=== PATIENT | female | born 2000 | race Two or more races ===

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

== ENCOUNTER 2023-09-16 08:49 | Emergency (ER) | payer OTHER ==
[~2023-09-16] VITALS: Ht 149.9 cm; Wt 52.6 kg
[2023-09-16] MEDS ORDERED: FOLIC ACID20 MG (09:15)
[2023-09-16] MEDS ORDERED: RINGERS SOLUTION,LACTATED 1,000 ML IV STA (10:17)
[2023-09-16] MEDS ORDERED: ONDANSETRON HCL 2 MG/ML VIAL IV ONE (10:30)
[2023-09-16 10:45] LABS: HEMATOCRIT 35.6 % (36.0-45.00); HEMOGLOBIN 12.5 g/dL (12.0-15.00); MEAN CELL VOLUME 86.4 fL (80.00-100.00); MEAN CORPUSCULAR HEMOGLOBIN 30.4 pg (27.00-32.0); MEAN CORPUSCULAR HGB CONC 35.2 g/dl (32.0-36.0); PLATELET COUNT 217 K/uL (150-450); RED BLOOD COUNT 4.12 M/uL (4.00-6.00); RED CELL DISTRIBUTION WIDTH 12.8 % (11.5-14.5)
[2023-09-16 11:38] LABS: CALCIUM 9.9 mg/dL (8.5-10.1); CREATININE SERUM 0.58 mg/dL (0.55-1.02); GFR 126.67; POTASSIUM 3.66 mEq/L (3.5-5.1)
[2023-09-16 12:25] LABS: PH,URINE 6.5 (5.0-8.0); URINE APPEARANCE Cloudy; URINE BILIRRUBIN Negative (NEGATIVE); URINE BLOOD Negative; URINE COLOR Yellow; URINE GLUCOSE Negative (NEGATIVE); URINE LEUKOCYTE Negative; URINE NITRATE Negative; URINE PROTEIN Negative (NEGATIVE)
[2023-09-16 12:28] LABS: URINE BACTERIA 1069.7 uL (0.0-1933); URINE EPITHELIAL CELLS 69.8 uL (0.0-38.8); URINE RBC 6.3 uL (0.0-20.8); URINE WBC 28.4 uL (0.0-23.2)
[2023-09-16 12:57] LABS: URINE MUCUS MODERATE
== END 2023-09-16 16:53 | disposition home or self-care (01) ==
LOC: ER 08:49
PROVIDERS: General Practice
DX: O21.8 Other vomiting complicating pregnancy (principal); Z3A.01 Less than 8 weeks gestation of pregnancy

== ENCOUNTER 2023-09-20 16:49 | Emergency (ER) | payer OTHER ==
[~2023-09-20] VITALS: Ht 121.9 cm; Wt 52.6 kg
[~2023-09-20 16:49] MED LIST changes: +FOLIC ACID20 MG
[2023-09-20] MEDS ORDERED: ZOFRAN8 MG (16:58)
[2023-09-20] MEDS ORDERED: GUAIFENESIN/DEXTROMETHORPHAN 100 MG/5 ML ML PO ONE (18:30)
[2023-09-20 19:24] LABS: HEMATOCRIT 33.5 % (36.0-45.00); HEMOGLOBIN 11.6 g/dL (12.0-15.00); MEAN CELL VOLUME 84.5 fL (80.00-100.00); MEAN CORPUSCULAR HEMOGLOBIN 29.3 pg (27.00-32.0); MEAN CORPUSCULAR HGB CONC 34.6 g/dl (32.0-36.0); PLATELET COUNT 173 K/uL (150-450); RED BLOOD COUNT 3.97 M/uL (4.00-6.00); RED CELL DISTRIBUTION WIDTH 13.1 % (11.5-14.5)
[2023-09-20] MEDS ORDERED: OSELTAMIVIR PHOSPHATE 75 MG CAPSULE PO ONE (21:15)
== END 2023-09-20 21:26 | disposition home or self-care (01) ==
LOC: ER 16:49
PROVIDERS: Emergency Medicine
DX: Z34.90 Encounter for supervision of normal pregnancy, unspecified, unspecified trimester (principal); J10.1 Influenza due to other identified influenza virus with other respiratory manifestations; R53.81 Other malaise; Z20.822 Contact with and (suspected) exposure to COVID-19

== ENCOUNTER 2024-04-19 18:28 | Inpatient (IN) | payer OTHER ==
[~2024-04-19] VITALS: Ht 149.9 cm; Wt 62.1 kg
[~2024-04-19 18:28] MED LIST changes: +CHILDREN'S ASPI81 MG; +PRENATAL + DHA1 EAC1; +ZOFRAN8 MG
[2024-04-19 18:54] VITALS: BP 130/77
[2024-04-19 19:55] LABS: PH,URINE 6.5 (5.0-8.0); URINE APPEARANCE Clear; URINE BILIRRUBIN Negative (NEGATIVE); URINE BLOOD Negative; URINE COLOR Yellow; URINE GLUCOSE Negative (NEGATIVE); URINE LEUKOCYTE Negative; URINE NITRATE Negative; URINE PROTEIN Negative (NEGATIVE)
[2024-04-19 19:59] LABS: URINE BACTERIA 1152.8 uL (0.0-1933); URINE EPITHELIAL CELLS 59.9 uL (0.0-38.8); URINE WBC 25.6 uL (0.0-23.2)
[2024-04-19 20:01] LABS: HEMATOCRIT 29.4 % (36.0-45.00); HEMOGLOBIN 10.4 g/dL (12.0-15.00); MEAN CELL VOLUME 86.6 fL (80.00-100.00); MEAN CORPUSCULAR HEMOGLOBIN 30.5 pg (27.00-32.0); MEAN CORPUSCULAR HGB CONC 35.2 g/dl (32.0-36.0); PLATELET COUNT 214 K/uL (150-450); RED CELL DISTRIBUTION WIDTH 13.4 % (11.5-14.5)
[2024-04-19 20:22] LABS: URINE CAST 0.15 uL (0.0-1.40); URINE CRYSTALS FEW /HPF; URINE KETONE 80 (NEGATIVE); URINE MUCUS SCANT; URINE RBC 1.2 uL (0.0-20.8)
[2024-04-19 20:28] LABS: INR 0.95; PARTIAL THROMBOPLASTIN TIME 27.3 SECONDS (22.0-34.0); PROTHROMBIN TIME 10.4 SECONDS (9.0-11.5)
[2024-04-19 20:35] LABS: BILIRUBIN TOTAL 0.64 mg/dL (0.3-1.2); CALCIUM 8.8 mg/dL (8.5-10.1); CREATININE SERUM 0.41 mg/dL (0.55-1.02); GFR 187.52; GLOBULINA 4.1 G/DL (2.4-3.5); POTASSIUM 3.59 mEq/L (3.5-5.1); TOTAL PROTEIN 7.1 gm/dL (6.4-8.2)
[2024-04-19 23:32] VITALS: BP 119/77
[2024-04-20] VITALS (7 sets, daily range): BP systolic 109–144; BP diastolic 65–85; O2SAT 98–99
[2024-04-20] MEDS ORDERED: ERYTHROMYCIN BASE OPHT 1GM EACH TUBE OP ONE (19:03)
[2024-04-20] MEDS ORDERED: OXYTOCIN 10 UNITS/ML VIAL ONE (19:03)
[2024-04-20] MEDS ORDERED: CEFAZOLIN SODIUM 1,000 MG VIAL ONE (20:31)
[2024-04-20] MEDS ORDERED: KETOROLAC TROMETHAMINE 60 MG VIAL IM STA (21:21)
[2024-04-20] MEDS ORDERED: CHLORHEXIDINE GLUCONATE 120 ML BOTTLE TP SCH (21:30)
[2024-04-20] MEDS ORDERED: PROMETHAZINE HCL 25 MG/ML AMPUL IM PRN (21:30)
[2024-04-20] MEDS ORDERED: OXYTOCIN 1,000 ML IV SCH (21:30)
[2024-04-20] MEDS ORDERED: MEPERIDINE HCL/PF 50 MG/ML VIAL IM PRN (21:30)
[2024-04-20] MEDS ORDERED: RINGERS SOLUTION,LACTATED 1,000 ML IV SCH (21:30)
[2024-04-20] MEDS ORDERED: MORPHINE SULFATE 4 MG/ML VIAL IV ONE ×2 (22:15→22:45)
[2024-04-21] MEDS ORDERED: OXYTOCIN 10 UNITS/ML VIAL ONE (00:42)
[2024-04-21 04:05] VITALS: BP 144/84
[2024-04-21 04:42] LABS: HEMATOCRIT 26.1 % (36.0-45.00); HEMOGLOBIN 9.4 g/dL (12.0-15.00); MEAN CELL VOLUME 85.2 fL (80.00-100.00); MEAN CORPUSCULAR HEMOGLOBIN 30.7 pg (27.00-32.0); PLATELET COUNT 209 K/uL (150-450); RED BLOOD COUNT 3.06 M/uL (4.00-6.00)
[2024-04-21 08:42] VITALS: BP 127/82
[2024-04-21] MEDS ORDERED: OxyCODONE HCL/APAP UD (PERCOCET) PO PRN (09:00)
[2024-04-21 16:00] VITALS: BP 136/87
[2024-04-21 20:41] VITALS: BP 133/82
[2024-04-22] VITALS: BP 124/75
[2024-04-22 08:34] VITALS: BP 136/80
[2024-04-22 13:09] VITALS: BP 133/88
[2024-04-22 17:41] VITALS: BP 135/84
[2024-04-23 01:00] VITALS: BP 139/87
[2024-04-23 07:34] VITALS: BP 136/86
[2024-04-23] MEDS ORDERED: IBUPROFEN800 MG PO (08:28)
== END 2024-04-23 14:12 | disposition home or self-care (01) | DRG 785 ==
LOC: OBS/DEL 18:28 → LDR 04-20 14:00 → O/R 04-20 20:15 → OB/GYN 04-20 22:47
PROVIDERS: ADMIT Obstetrics & Gynecology; ATTEND Obstetrics & Gynecology
PROC: 0UB70ZZ Excision of Bilateral Fallopian Tubes, Open Approach (ICD-10-PCS; 2024-04-20)
PROC: BY4FZZZ Ultrasonography of Third Trimester, Single Fetus (ICD-10-PCS; 2024-04-20)
PROC: 4A1HXCZ Monitoring of Products of Conception, Cardiac Rate, External Approach (ICD-10-PCS; 2024-04-20)
PROC: 10D00Z1 Extraction of Products of Conception, Low, Open Approach (ICD-10-PCS; principal; 2024-04-20 18:15)
DX: O13.4 Gestational [pregnancy-induced] hypertension without significant proteinuria, complicating childbirth (principal); O26.843 Uterine size-date discrepancy, third trimester; O34.211 Maternal care for low transverse scar from previous cesarean delivery; O36.8130 Decreased fetal movements, third trimester, not applicable or unspecified; Z3A.38 38 weeks gestation of pregnancy; Z37.0 Single live birth; Z30.2 Encounter for sterilization